=== PATIENT | female | born 1945 | race Caucasian/White ===

== ENCOUNTER → 2020-05-11 12:31 | Outpatient (CLI) | payer MEDICARE, MEDICAID, SELFPAY ==
--- NOTE | 2020-05-11 12:38 | CT_ITS ---
STUDY: CT ABDOMEN AND PELVIS WITHOUT CONTRAST REASON FOR EXAM: Female, 75 years old. KIDNEY STONES -- LEFT SIDE ABD PAIN SINCE LITHOTRIPSY 01/2020 -- SURG-DOUGLAS/BSO,BLADDER STIMULATOR, X2, LITHOTRIPSY X2 -- HX-LYMPHOMA--CHEMO PILL EVERYDAY RADIATION DOSAGE (If Supplied By Facility): CTDIvol = ( 9.24 ) mGy, DLP = ( 480.16 ) mGycm TECHNIQUE: Transaxial images were obtained from the dome of the diaphragm to the symphysis pubis without oral contrast, and without intravenous contrast. Sagittal and coronal images were reconstructed. Individualized dose optimization techniques were used for this CT. COMPARISON: None. FINDINGS: There is a small left pleural effusion with left basilar atelectasis and/or infiltrate. Mild degree of increased markings in the right middle lobe. Coronary artery calcification. Normal liver. Small gallstones along the dependent surface of the gallbladder. Normal spleen. Normal pancreas. There is a small, circumscribed, smooth, low attenuation right adrenal mass, consistent with an adrenal adenoma. This measures 1.8 cm. Normal left adrenal gland. Normal right kidney. Mild degree of left hydronephrosis and left hydroureter down to the insertion of the ureterovesical junction. No obstructive calculus is seen. This most likely represents passage of a left ureteral calculus. There is a 3 mm calculus in the upper medial portion of the left kidney. Normal visualized stomach. Normal small intestine. There are multiple colonic diverticula consistent with diverticulosis. The appendix is visualized and appears normal. There is diffuse atherosclerotic calcification of the abdominal aorta and its major visceral branches, without a demonstrated aneurysm. Normal inferior vena cava. Normal retroperitoneum. Normal urinary bladder. There is absence of the uterus consistent with a prior hysterectomy. Normal abdominal wall. There are degenerative changes of the visualized lumbar spine. A battery pack from a TENS unit is seen overlying the right buttock. CT/Abdomen/Pelvis without Cont IMPRESSION: Left hydronephrosis and hydroureter without evidence of an obstructive calculus at this time. This most likely is secondary to a recently passed calculus. Small left pleural effusion with left basilar infiltration and/or atelectasis. Electronically Signed: Skyler Alvarenga, at 14:23 EST , Service support ,
== END ==
PROVIDERS: PCP Family Medicine; Referring Provider Urology; Visit Provider Urology
DX: N13.2 Hydronephrosis with renal and ureteral calculous obstruction (principal)
CPT/HCPCS: 74176

== ENCOUNTER → 2020-08-08 12:40 | Outpatient (CLI) | payer MEDICARE, MEDICAID, SELFPAY ==
--- NOTE | 2020-08-08 12:49 | US_ITS ---
STUDY: RENAL ULTRASOUND - COMPLETE REASON FOR EXAM: Female, 75 years old. HYDRONEPHROSIS TECHNIQUE: Ultrasound evaluation of the kidneys was performed with real-time and static devlin-scale imaging. COMPARISON: CT 05/11/2020 FINDINGS: RIGHT KIDNEY: Normal location of the right kidney, which is normal in size. The right kidney measures 10.2 cm. Increased echogenicity renal cortex consistent with chronic medical renal disease or advanced age. The renal cortex measures 1.2 cm. There is no right renal mass or cyst. There are no right renal calculi. There is no right hydronephrosis. DISTAL RIGHT URETER: There is non-visualization of the distal right ureter. There is no demonstrated right ureterovesical junction calculus. There is a visualized right ureteral jet. LEFT KIDNEY: Normal location of the left kidney, which is normal in size. The left kidney measures 9.2 cm. Increased echogenicity renal cortex consistent with chronic medical renal disease or advanced age. The renal cortex measures 1.5 cm. No change in the 3.5 cm exophytic cyst lower pole the left kidney. There are no left renal calculi. No change in mild hydronephrosis. DISTAL LEFT URETER: There is non-visualization of the distal left ureter. There is no demonstrated left ureterovesical junction calculus. There is a visualized left ureteral jet. BLADDER: The distended urinary bladder has a volume of 104 ml. The empty urinary bladder has a volume of ml. There is a normal wall thickness of the distended urinary bladder. There is no demonstrated mass within the urinary bladder. There are no demonstrated bladder calculi. US/Kidney and Bladder IMPRESSION: No change in mild left hydronephrosis possibly from a ureteropelvic junction stenosis. Electronically Signed: Fran Ledezma MD at 8:58 EDT Tel , Service support ,
== END ==
PROVIDERS: PCP Family Medicine; Referring Provider Urology; Visit Provider Urology
DX: N13.30 Unspecified hydronephrosis (principal)
CPT/HCPCS: 76770

== ENCOUNTER → 2020-12-13 12:42 | Outpatient (CLI) | payer MEDICARE, MEDICAID, SELFPAY ==
--- NOTE | 2020-12-13 12:47 | US_ITS ---
STUDY: RENAL ULTRASOUND - COMPLETE REASON FOR EXAM: Female, 75 years old. HYDRONEPHROSIS TECHNIQUE: Ultrasound evaluation of the kidneys was performed with real-time and static devlin-scale imaging. COMPARISON: 08/08/2020 FINDINGS: RIGHT KIDNEY: Normal location of the right kidney, which is normal in size. The right kidney measures 9.7 x 6.2 by 5.4 cm. There is a normal cortex of the right kidney. The renal cortex measures 1.9 cm. 1 cm superior renal sinus cyst. There are no right renal calculi. There is no right hydronephrosis. DISTAL RIGHT URETER: There is non-visualization of the distal right ureter. There is a visualized right ureteral jet. LEFT KIDNEY: Normal location of the left kidney, which is normal in size. The left kidney measures 10.3 x 5.9 x 4.2 cm. There is a normal cortex of the left kidney. The renal cortex measures 1.6 cm. 4.3 x 3.4 x 3 cm inferior pole cyst. There are no left renal calculi. There is mild left hydronephrosis. DISTAL LEFT URETER: There is non-visualization of the distal left ureter. There is not a visualized left ureteral jet. AORTA: Not demonstrated. I.V.C.: Not demonstrated. BLADDER: The urinary bladder has a volume of 37.5 ml. There is a normal wall thickness of the urinary bladder. There is no demonstrated mass within the urinary bladder. There are no demonstrated bladder calculi. US/Kidney and Bladder IMPRESSION: Mild left hydronephrosis redemonstrated. Electronically Signed: Brock Ramirez MD at 3:14 EDT Tel , Service support ,
== END ==
PROVIDERS: PCP Family Medicine; Referring Provider Urology; Visit Provider Urology
DX: N13.39 Other hydronephrosis (principal)
CPT/HCPCS: 76770